=== PATIENT | male | born 1940 | race Caucasian/White ===

== ENCOUNTER → 2019-05-28 12:29 | Outpatient (CLI) | payer MEDICARE, OTHER | END | disposition home or self-care (01) | LOC: D.MRI 12:29 | PROVIDERS: ATTEND Family Medicine | DX: R26.89 Other abnormalities of gait and mobility (principal) ==

== ENCOUNTER 2019-09-16 18:19 | Inpatient (IN) | payer MEDICARE, OTHER ==
[~2019-09-16] VITALS: Ht 182.9 cm; Wt 75.8 kg
--- NOTE | ~2019-09-16 | OP ---
PATIENT NAME: RAMU DUMONT MEDICAL RECORD: [id number] :38 LOCATION:D.M2 D.2102 ADMISSION DATE:09/16/19 SURGEON: RAMU BREAUX MD DATE OF OPERATION: 09/20/2019 PREOPERATIVE DIAGNOSIS: Perirectal abscess. POSTOPERATIVE DIAGNOSES: Large perirectal abscess, left with rectal fistula. PROCEDURES: 1. Excisional debridement of perirectal abscess. The debrided margins were 2.0 x 1.9 cm, included skin and subcutaneous tissue as well as a portion of the abscess cavity. 2. Rectal fistulotomy. SURGEON: Ramu Breaux MD STAFF AIR DEFENSE OFFICER: None. BLOOD LOSS: 100 cc. ANESTHESIA: General. COMPLICATIONS: None. The risks, possible complications, and alternatives to the procedure were explained to the patient. He elects to proceed. Discussion specifically included, but was not limited to, bleeding requiring emergency reoperation, infection, postoperative fecal incontinence, postoperative anal stenosis. OPERATIVE COURSE: The patient's CT scan had been reviewed by me. The radiologist's interpretation was reviewed as well. The patient was conveyed to the operating room on 09/20/2019. General anesthesia was induced by anesthesia staff. The patient was placed in the lithotomy position. The buttocks were taped laterally. The anus and perianal tissues and peritoneum were sterilely prepped and draped. U-shaped anal retractors were placed up in through the anus. I punctured the abscess cavity. I then injected a combination of methylene blue and hydrogen peroxide. I could see the bubbling out at about 5 o' clock up in the rectum. This was above the level of the anus. I excised a portion of the skin and subcutaneous tissue abscess wall. This was done sharply. The dimensions are listed above. Through this defect, a lot of purulent material drained out. Cultures were obtained. Through this defect, I advanced a fistula probe. I was able to easily get it to advance out through the fistulous opening in the rectum. Over this fistula probe, I incised with electrocautery. The fistula was opened widely. I then performed some blunt dissection within the abscess cavity. Additional purulence was identified. I then irrigated with hydrogen peroxide. I marsupialized the fistulotomy with running locking 3-0 Vicryl Rapide suture. I then took some measurements. I then packed the wound with Kerlix that had some knots in it and that was soaked in hydrogen peroxide. OPERATIVE REPORT [id number] RAMU DUMONT sterile dressing was applied. The patient was then extubated and conveyed to post-anesthesia care unit where he was in stable condition. The opening to the fistula and the rectum was 4 cm from the anal verge. This is a pretty high fistula and would be a rectal fistula than an anal fistula. TRANSINT:[id number] Voice Confirmation ID: [id number] DOCUMENT ID: [id number] RAMU BREAUX MD CC: NIKKI LIRA [id number] DICTATION DATE: 09/21/19 1737 SALES AGENT MARINE INSURANCE: 09/22/19 0218 ADM IN [facility] [address] [id number]
[2019-09-16 19:15] LABS: APTT 30.3 SECONDS (22.8-39.4); BASOPHILS 0.1 % (0-2); EOSINOPHILS 0.2 % (0-7); HEMATOCRIT 27.3 % (42.0-54.0); HEMOGLOBIN 8.6 g/dL (13.5-17.5); IMMATURE GRANULOCYTES 0.2 % (0-5); INR 1.1 (0.85-1.17); MCH 25.5 pg (26.0-34.0); MCHC 31.5 g/dL (31.0-37.0); MEAN PLATELET VOLUME 7.9 fL (7.4-10.4); MONOCYTES 10.9 % (2-11); NEUTROPHILS 83.6 % (40-80); PLATELET COUNT 282 10x3/uL (130-400); PROTIME 14.2 SECONDS (11.6-15.0); RBC 3.37 10x6/uL (4.20-6.10); RDW 14.3 % (11.5-14.5); WBC 17.7 10x3/uL (4.8-10.8)
[2019-09-16 19:21] LABS: CALC OSMOLALITY 267 mosm/kg (275-300); CALCIUM 8.3 mg/dL (8.5-10.1); CARBON DIOXIDE 25.3 mmol/L (21.0-32.0); CHLORIDE - SERUM 99 mmol/L (98-107); CREATININE - SERUM 0.8 mg/dL (0.6-1.3); GLUCOSE 118 mg/dL (74-106); POTASSIUM - SERUM 4.3 mmol/L (3.5-5.1); SODIUM 132 mmol/L (136-145); UREA NITROGEN 17 mg/dL (7-18); eGFR NON AFRICAN AMERICAN > 90 mL/min (90-120)
[2019-09-16 19:44] LABS: ALBUMIN 2.5 g/dL (3.4-5.0); ALKALINE PHOSPHATASE 68 U/L (30-120); ALT (SGPT) 14 U/L (10-68); BILIRUBIN - TOTAL 0.32 mg/dL (0.2-1.3); C-REACTIVE PROTEIN 14.2 mg/dL (0.0-0.9); CKMB 0.4 U/L (0.0-3.6); CREATINE KINASE 35 UL (21-232); PROTEIN - SERUM 6.4 g/dL (6.4-8.2); TROPONIN-I 0.028 ng/mL (0.000-0.060)
[2019-09-16 19:48] VITALS: BP 125/61
--- NOTE | 2019-09-16 20:00 | NUR ---
URINE SPECIMEN AND ALL ORDERED SWABS TAKEN TO LAB AT THIS TIME.
[2019-09-16 20:31] LABS: BILIRUBIN NEGATIVE (NEGATIVE); GLUCOSE NEGATIVE (NEGATIVE); KETONE NEGATIVE (NEGATIVE); NITRITE NEGATIVE (NEGATIVE); SPECIFIC GRAVITY 1.015 (1.005-1.020); UROBILINOGEN NORMAL (NORMAL)
[2019-09-16 22:07] VITALS: BMI 21.0
[2019-09-17 07:11] LABS: BASOPHILS 0.3 % (0-2); EOSINOPHILS 1.3 % (0-7); HEMATOCRIT 25.7 % (42.0-54.0); IMMATURE GRANULOCYTES 0.3 % (0-5); LYMPHOCYTES 5.9 % (15-50); MCH 25.3 pg (26.0-34.0); MCHC 31.1 g/dL (31.0-37.0); MCV 81.3 fL (80.0-100.0); MONOCYTES 12.2 % (2-11); PLATELET COUNT 261 10x3/uL (130-400); RBC 3.16 10x6/uL (4.20-6.10); RDW 14.4 % (11.5-14.5); WBC 15.2 10x3/uL (4.8-10.8)
[2019-09-17 07:37] LABS: ALBUMIN 2.2 g/dL (3.4-5.0); ALKALINE PHOSPHATASE 61 U/L (30-120); ALT (SGPT) 13 U/L (10-68); BILIRUBIN - TOTAL 0.29 mg/dL (0.2-1.3); CALC OSMOLALITY 275 mosm/kg (275-300); CHLORIDE - SERUM 105 mmol/L (98-107); CREATININE - SERUM 0.8 mg/dL (0.6-1.3); GLUCOSE 113 mg/dL (74-106); MAGNESIUM - SERUM 2.2 mg/dL (1.8-2.4); POTASSIUM - SERUM 3.9 mmol/L (3.5-5.1); PROTEIN - SERUM 5.8 g/dL (6.4-8.2); SODIUM 137 mmol/L (136-145); UREA NITROGEN 14 mg/dL (7-18); eGFR NON AFRICAN AMERICAN > 90 mL/min (90-120)
[2019-09-17 08:27] VITALS: BP 126/50
--- NOTE | 2019-09-17 08:30 | NUR ---
PT LAYING SUPINE IN BED. RR EVEN AND UNLABORED ON RA. PT STATES HE HAD A BOWEL MOVEMENT WITHOUT MAKING IT TO THE BATHROOM IN TIME. GOWN, WIPES, AND BRIEF RECIEVED PER REQUEST. PT DENIES NEEDING HELP CHANGING. AMBULATED WITH STEADY GAIT TO BATHROOM. DENIES FURTHER NEEDS OR PAIN AT THIS TIME. CALL LIGHT WITHIN REACH. BED IN LOWEST POSITION. WILL CONTINUE TO MONITOR.
--- NOTE | 2019-09-17 09:36 | NUR ---
I have reviewed this patient and I concur with the Shift Assessment completed by the Licensed Practical Nurse today this shift.
[2019-09-17 12:18] VITALS: BP 119/59
--- NOTE | 2019-09-17 18:55 | NUR ---
DAVID WITH INFECTION CONTROLL CALLED TO INFORM STAFF THAT PT IS COVID-19 NEGATIVE. PT WILL BE MOVED TO ROOM 210.
--- NOTE | 2019-09-17 19:30 | NUR ---
REPORT RECEIVED, WILL CONTINUE POC. PATIENT IS AAOX4, TRANSFERING FROM ROOM 2128 TO 2101. NO S/S OF DISTRESS OBSERVED, RR EVEN AND UNLABORED ON ROOM AIR. PATIENT DENIES NEEDS AT THIS TIME. CL IN REACH, BED LOCKED AND LOWERED. WILL CTM.
[2019-09-17 21:08] VITALS: BP 121/60
[2019-09-17 23:58] VITALS: BP 112/46
[2019-09-18 04:05] VITALS: BP 106/50
[2019-09-18 06:31] LABS: BASOPHILS 0.3 % (0-2); HEMATOCRIT 24.4 % (42.0-54.0); IMMATURE GRANULOCYTES 0.3 % (0-5); LYMPHOCYTES 8.5 % (15-50); MCHC 30.7 g/dL (31.0-37.0); MCV 81.3 fL (80.0-100.0); MEAN PLATELET VOLUME 7.7 fL (7.4-10.4); MONOCYTES 11.3 % (2-11); NEUTROPHILS 78.6 % (40-80); PLATELET COUNT 273 10x3/uL (130-400); RDW 14.6 % (11.5-14.5); WBC 14.2 10x3/uL (4.8-10.8)
[2019-09-18 06:44] LABS: HEMOGLOBIN 7.5 g/dL (13.5-17.5)
[2019-09-18 06:53] LABS: CALC OSMOLALITY 272 mosm/kg (275-300); CALCIUM 7.8 mg/dL (8.5-10.1); CARBON DIOXIDE 25.2 mmol/L (21.0-32.0); CHLORIDE - SERUM 106 mmol/L (98-107); CREATININE - SERUM 0.7 mg/dL (0.6-1.3); GLUCOSE 93 mg/dL (74-106); POTASSIUM - SERUM 3.9 mmol/L (3.5-5.1); SODIUM 137 mmol/L (136-145); THYROID STIMULATING HORMONE 1.27 uIU/mL (0.36-3.74); UREA NITROGEN 11 mg/dL (7-18); eGFR NON AFRICAN AMERICAN > 90 mL/min (90-120)
--- NOTE | 2019-09-18 07:10 | NUR ---
REPORT RECEIVED FROM INSTRUCTOR INDUSTRIAL DESIGN AND PATIENT CARE ASSUMED. PATIENT LAYING IN BED ON BACK AWAKE, ALERT AND ORIENTED X 4. PATIENT DENIES ANY NEEDS OR PAIN. WILL CONTINUE WITH PLAN OF CARE. SR UPX 2 BED IN LOW POSTION AND CALL LIGHT IN REACH.
[2019-09-18 08:11] VITALS: BP 83/33
[2019-09-18 10:39] LABS: % SATURATION 6 % (15-55); IRON 13 ug/dl (35-150); TOTAL IRON BIND CAPACITY 209 ug/dl (260-445); UNSAT IRON BIND CAPACITY 196 ug/dl (150-375)
--- NOTE | 2019-09-18 10:50 | NUR ---
PATIENT IS STABLE AND VSS. ASSESMENT COMPLETED. AT BS. WILL CONITNUE TO MONITOR. SR UP X 2 BED IN LOW POSITION AND CALL LIGHT IN REACH.
[2019-09-18 11:42] VITALS: BP 111/42
[2019-09-18 14:56] VITALS: BP 114/48
[2019-09-18 16:28] LABS: BASOPHILS 0.3 % (0-2); EOSINOPHILS 0.9 % (0-7); HEMATOCRIT 29.2 % (42.0-54.0); IMMATURE GRANULOCYTES 0.3 % (0-5); LYMPHOCYTES 8.9 % (15-50); MCH 25.3 pg (26.0-34.0); MCHC 31.2 g/dL (31.0-37.0); MCV 81.3 fL (80.0-100.0); MEAN PLATELET VOLUME 7.8 fL (7.4-10.4); MONOCYTES 10.5 % (2-11); NEUTROPHILS 79.1 % (40-80); PLATELET COUNT 241 10x3/uL (130-400); RBC 3.59 10x6/uL (4.20-6.10); RDW 14.6 % (11.5-14.5); WBC 15.5 10x3/uL (4.8-10.8)
[2019-09-18 16:42] LABS: HEMOGLOBIN 9.1 g/dL (13.5-17.5)
--- NOTE | 2019-09-18 19:00 | NUR ---
REPORT RECEIVED, WILL CONTINUE POC. PATIENT IS AAOX4, LYING ON LEFT SIDE. NO S/S OF DISTRESS OBSERVED, RR EVEN AND UNLABORED ON ROOM AIR. PATIENT DENIES NEEDS AT THIS TIME. CL IN REACH, BED LOCKED AND LOWERED. WILL CTM.
[2019-09-18 20:48] VITALS: BP 112/57
[2019-09-19 00:48] VITALS: BP 111/62
--- NOTE | 2019-09-19 03:38 | NUR ---
I have reviewed this patient and I concur with the Shift Assessment completed by the Licensed Practical Nurse today this shift.
[2019-09-19 05:34] LABS: BASOPHILS 0.3 % (0-2); EOSINOPHILS 1.1 % (0-7); HEMATOCRIT 28.2 % (42.0-54.0); HEMOGLOBIN 8.9 g/dL (13.5-17.5); IMMATURE GRANULOCYTES 0.3 % (0-5); LYMPHOCYTES 8.5 % (15-50); MCH 25.4 pg (26.0-34.0); MCHC 31.6 g/dL (31.0-37.0); MCV 80.6 fL (80.0-100.0); MEAN PLATELET VOLUME 7.9 fL (7.4-10.4); MONOCYTES 12.9 % (2-11); NEUTROPHILS 76.9 % (40-80); PLATELET COUNT 259 10x3/uL (130-400); RDW 14.5 % (11.5-14.5); WBC 14.8 10x3/uL (4.8-10.8)
[2019-09-19 05:45] LABS: CALC OSMOLALITY 270 mosm/kg (275-300); CARBON DIOXIDE 26.8 mmol/L (21.0-32.0); CHLORIDE - SERUM 105 mmol/L (98-107); CREATININE - SERUM 0.8 mg/dL (0.6-1.3); GLUCOSE 103 mg/dL (74-106); MAGNESIUM - SERUM 1.9 mg/dL (1.8-2.4); POTASSIUM - SERUM 3.8 mmol/L (3.5-5.1); SODIUM 136 mmol/L (136-145); UREA NITROGEN 11 mg/dL (7-18); eGFR NON AFRICAN AMERICAN > 90 mL/min (90-120)
[2019-09-19 06:00] VITALS: BP 123/58
--- NOTE | 2019-09-19 07:42 | NUR ---
PT NPO AND WANTING MENU AND STATES HIS TOILET SEAT IS BROKEN I STATED I WILL CALL DIETARY AND MAINTENANCE. PT VERBALIZED UNDERSTANDING. CALLED DIETARY AND THEY STATE THEY WILL BRING MENU. I ALSO CALLED MAINTENANCE ABOUT THE TOILET SEAT AND THEY STATED THEY WOULD COME IX IT. I VERBALIZED UNDERSTANDING.
[2019-09-19 08:02] LABS: BASOPHILS 0.3 % (0-2); HEMATOCRIT 29.1 % (42.0-54.0); HEMOGLOBIN 9.2 g/dL (13.5-17.5); IMMATURE GRANULOCYTES 0.5 % (0-5); LYMPHOCYTES 9.6 % (15-50); MCH 25.3 pg (26.0-34.0); MCHC 31.6 g/dL (31.0-37.0); MCV 80.2 fL (80.0-100.0); MEAN PLATELET VOLUME 7.8 fL (7.4-10.4); MONOCYTES 13.1 % (2-11); NEUTROPHILS 75.5 % (40-80); PLATELET COUNT 253 10x3/uL (130-400); RBC 3.63 10x6/uL (4.20-6.10); RDW 14.5 % (11.5-14.5); WBC 15.4 10x3/uL (4.8-10.8)
[2019-09-19 08:11] VITALS: BP 146/56
[2019-09-19 12:13] VITALS: BP 117/62
--- NOTE | 2019-09-19 12:38 | MORECARE ---
CASE MANAGEMENT DISCHARGE SUMMARY PATIENT: OMAR DUMONT UNIT: [id number] ADM DATE: 09/16/19 AGE: 79 : 38 SEX: M ROOM/BED: D.2102 AUTHOR: HARJIT,DOC PHYSICIAN: REFERRING PHYSICIAN: NIKKI LIRA DO DATE OF SERVICE: 09/19/19 Discharge Plan Patient Name: OMAR DUMONT [facility] [facility] 1940 Planned Disposition: Home Anticipated Discharge Date: Discharge Date: Expected LOS: Initial Reviewer: [email or web address] Initial Review Date: 09/19/2019 Generated: 09/19/19 1:37 pm Comments DCP- Discharge Planning Updated by [email or web address]: Ne Leavitt on 09/19/19 11:[address] Patient Name: OMAR DUMONT Admission Status: ER Accout number: [id number] Admission Date: 09-16-2019 : 1940 Admission Diagnosis:FEVER, UNSPECIFIED Attending: NIKKI LIRA Current LOS: 3 Anticipated DC Date: Planned Disposition: Home Primary Insurance: MEDICARE A & B Discharge Planning Comments: CM met with patient to complete initial dc planning assessment. CM educated patient on the CM role and verbal consent given by patient to complete assessment. Patient lives at home with spouse. He is independent with all ADL's and AIDL's. At discharge patient plans to return and feels this is a safe discharge. CM discussed availability of home health, rehab services, and medical equipment. Patient denied known discharge needs at this time. He declines home health. I informed him that Medicare will pay for home health if needed and to phone his PCP for an order if he ever feels the need for home health or becomes homebound, voiced understanding. CM will continue to follow and will assist as needed with dc plans/needs. Computer Sciences Professor: Ne Leavitt DCPIA - Discharge Planning Initial Assessment Updated by [id number]: Ne Leavitt on 09/19/19 12:31 pm * Is the patient Alert and Oriented? Yes * How many steps to enter\exit or inside your home? 2/flight * PCP Dr. Robles * Pharmacy [facility] for superintendent terminal meds from * Preadmission Environment Home with Family * ADLs Independent * Equipment Cane * List name and contact numbers for known caregivers / representatives who currently or will assist patient after discharge: Bharati Dumont - [phone] * Verbal permission to speak to the caregivers and representatives has been obtained from the patient. Yes * Community resources currently utilized None * Additional services required to return to the preadmission environment? No * Can the patient safely return to the preadmission environment? Yes * Has this patient been hospitalized within the prior 30 days at any hospital? No Patient Name: OMAR DUMONT Page [phone] at 1238 All edits/amendments must be made on the electronic document DICTATION DATE: 09/19/191236 CREDIT OPERATIONS SPECIALIST: FIDELINA 09/19/191236 RPT#: [id number] DC DATE: STATUS: ADM IN [facility] [address] [place] [address] END OF REPORT
--- NOTE | 2019-09-19 13:05 | NUR ---
I have reviewed this patient and I concur with the Shift Assessment completed by the Licensed Practical Nurse today this shift.
--- NOTE | 2019-09-19 14:30 | NUR ---
PT TAKEN FOR EGD VIA BED.
[2019-09-19 16:09] LABS: ANA REFLEX - DIRECT Negative (Negative)
[2019-09-19 16:12] LABS: BASOPHILS 0.3 % (0-2); EOSINOPHILS 0.6 % (0-7); HEMATOCRIT 28.8 % (42.0-54.0); HEMOGLOBIN 9.1 g/dL (13.5-17.5); IMMATURE GRANULOCYTES 0.4 % (0-5); LYMPHOCYTES 6.4 % (15-50); MCH 25.3 pg (26.0-34.0); MCHC 31.6 g/dL (31.0-37.0); MCV 80.2 fL (80.0-100.0); MEAN PLATELET VOLUME 7.9 fL (7.4-10.4); MONOCYTES 10.7 % (2-11); NEUTROPHILS 81.6 % (40-80); PLATELET COUNT 251 10x3/uL (130-400); RBC 3.59 10x6/uL (4.20-6.10); RDW 14.5 % (11.5-14.5); WBC 14.5 10x3/uL (4.8-10.8)
--- NOTE | 2019-09-19 18:00 | NUR ---
CONSENTS FOR SX TOMORROW SIGNED.
--- NOTE | 2019-09-19 19:00 | NUR ---
PT RESTING IN BED WITH EYES CLOSED. RESPIRATIONS EVEN AND UNLABORED. BED IS LOW AND CALL LIGHT IS WITHIN REACH.
[2019-09-19 20:00] VITALS: BP 151/64
[2019-09-20] VITALS: BP 105/54
[2019-09-20 04:00] VITALS: BP 106/55
[2019-09-20 05:36] LABS: CHLORIDE - SERUM 102 mmol/L (98-107); CREATININE - SERUM 0.8 mg/dL (0.6-1.3); GLUCOSE 92 mg/dL (74-106); SODIUM 134 mmol/L (136-145); eGFR NON AFRICAN AMERICAN > 90 mL/min (90-120)
[2019-09-20 05:37] LABS: CALC OSMOLALITY 265 mosm/kg (275-300); POTASSIUM - SERUM 3.1 mmol/L (3.5-5.1); UREA NITROGEN 8 mg/dL (7-18)
[2019-09-20 05:40] LABS: HEMATOCRIT 26.5 % (42.0-54.0); HEMOGLOBIN 8.4 g/dL (13.5-17.5); MCH 25.5 pg (26.0-34.0); MCHC 31.7 g/dL (31.0-37.0); MCV 80.5 fL (80.0-100.0); MEAN PLATELET VOLUME 8.2 fL (7.4-10.4); PLATELET COUNT 260 10x3/uL (130-400); RBC 3.29 10x6/uL (4.20-6.10); RDW 14.7 % (11.5-14.5); WBC 15.3 10x3/uL (4.8-10.8)
--- NOTE | 2019-09-20 06:21 | NUR ---
IV TO LEFT WRIST LEAKING. RESITED IV TO RIGHT HAND 20G X 1 ATTEMPT. PT TOLERATED WELL.
--- NOTE | 2019-09-20 08:05 | NUR ---
PT LAYING AWAKE IN BED UPON ENTERING. ALERT AND ORIENTED X4. DENIES ANY NEEDS. BED IN LOWEST POSITION, BED RAILS X2, CALL LIGHT WITHIN REACH. WILL CONTINUE TO MONITOR.
--- NOTE | 2019-09-20 08:25 | NUR ---
HUNG IV ABX, AND PROVIDED PT WITH MORE DEPENDS. DENIES ANY OTHER NEEDS. RESTING COMFORTABLY IN BED. WILL CONTINUE TO MONITOR. ASSESSMENT PERFORMED AT THIS TIME.
[2019-09-20 09:44] LABS: LYMPHOCYTES 10 % (15-50); MONOCYTES 8 % (2-11); NEUTROPHILS 80 % (40-80); PLATELET ESTIMATE NORMAL
[2019-09-20 10:36] VITALS: BP 112/56
--- NOTE | 2019-09-20 10:46 | NUR ---
HUNG IV ABX, HAVE POTASSIUM REPLACEMENT BAGS READY FOR WHEN ABX ARE DONE. RESTING IN BED, AT BEDSIDE. DENIES ANY NEEDS. WILL CONTINUE TO MONITOR.
--- NOTE | 2019-09-20 11:06 | NUR ---
PRE-OP'D PT FOR PROCEDURE.
--- NOTE | 2019-09-20 11:42 | NUR ---
PT OUT TO SURGERY.
[2019-09-20 13:12] VITALS: Ht 182.9 cm; Wt 75.8 kg
[2019-09-20 14:39] VITALS: BP 110/65
--- NOTE | 2019-09-20 14:44 | NUR ---
PT BACK FROM SURGERY. VITALS ASSESSED, VSS. PT IS ALERT AND ORIENTED X4, DENIES ANY NEEDS. SURGERY TEAM GETTING PT BACK TO ROOM. WILL CONTINUE TO MONITOR FREQUENTLY FOR POST OP VITALS.
[2019-09-20 15:32] LABS: BASOPHILS 0.3 % (0-2); EOSINOPHILS 0.9 % (0-7); HEMATOCRIT 26.6 % (42.0-54.0); HEMOGLOBIN 8.5 g/dL (13.5-17.5); IMMATURE GRANULOCYTES 0.5 % (0-5); LYMPHOCYTES 6.3 % (15-50); MCH 25.6 pg (26.0-34.0); MCV 80.1 fL (80.0-100.0); MEAN PLATELET VOLUME 7.6 fL (7.4-10.4); MONOCYTES 11.6 % (2-11); NEUTROPHILS 80.4 % (40-80); RBC 3.32 10x6/uL (4.20-6.10); RDW 14.7 % (11.5-14.5); WBC 15.1 10x3/uL (4.8-10.8)
--- NOTE | 2019-09-20 15:49 | NUR ---
HUNG IV ABX, RETIMED APPROPRIATELY. DENIES ANY NEEDS. DR. LEACH IN THE ROOM, GAVE VERBAL ORDER FOR CLEAR LIQUID DIET. WILL CONTINUE TO MONITOR.
[2019-09-20 15:57] LABS: PLATELET COUNT 193 10x3/uL (130-400)
--- NOTE | 2019-09-20 16:10 | NUR ---
I have reviewed this patient and I concur with the Shift Assessment completed by the Licensed Practical Nurse today this shift.
--- NOTE | 2019-09-20 17:21 | NUR ---
AAO X4, UPRIGHT IN BED EATING DINNER. IV IRON STARTED. FAMILY AT BEDSIDE. DENIES ANY NEEDS. WILL CONTINUE TO MONITOR.
--- NOTE | 2019-09-20 19:30 | NUR ---
PT IN BED, AAO X 3, RESP EVEN AND UNLABORED, NO DISTRESS NOTED, PT HAS NO C/O PAIN OR DISCOMFORT NOTED AT THIS TIME. CL IN REACH, SR UP X 2.
[2019-09-20 20:30] VITALS: BP 114/62
--- NOTE | 2019-09-20 22:48 | NUR ---
OUTER ABD PADS CHANGED TO DRSG DUE TO DRAINAGE AT THIS TIME.
[2019-09-21 00:26] VITALS: BP 122/56
--- NOTE | 2019-09-21 04:05 | NUR ---
I have reviewed this patient and I concur with the Shift Assessment completed by the Licensed Practical Nurse today this shift.
[2019-09-21 04:30] VITALS: BP 137/82
[2019-09-21 05:34] LABS: BASOPHILS 0.5 % (0-2); EOSINOPHILS 2.1 % (0-7); HEMATOCRIT 29.1 % (42.0-54.0); IMMATURE GRANULOCYTES 0.8 % (0-5); LYMPHOCYTES 10.3 % (15-50); MCH 25.1 pg (26.0-34.0); MCHC 30.9 g/dL (31.0-37.0); MCV 81.3 fL (80.0-100.0); MONOCYTES 10.5 % (2-11); NEUTROPHILS 75.8 % (40-80); RBC 3.58 10x6/uL (4.20-6.10); RDW 14.9 % (11.5-14.5)
[2019-09-21 05:41] LABS: PLATELET COUNT 310 10x3/uL (130-400)
[2019-09-21 05:48] LABS: CALC OSMOLALITY 265 mosm/kg (275-300); CALCIUM 8.3 mg/dL (8.5-10.1); CARBON DIOXIDE 25.7 mmol/L (21.0-32.0); CHLORIDE - SERUM 101 mmol/L (98-107); CREATININE - SERUM 0.7 mg/dL (0.6-1.3); GLUCOSE 93 mg/dL (74-106); SODIUM 134 mmol/L (136-145); UREA NITROGEN 7 mg/dL (7-18); eGFR NON AFRICAN AMERICAN > 90 mL/min (90-120)
[2019-09-21 05:49] LABS: POTASSIUM - SERUM 3.6 mmol/L (3.5-5.1)
--- NOTE | 2019-09-21 07:58 | NUR ---
PT AWAKE AND ORIENTED, LYING IN BED. ASSISTED WITH URINAL, REQUESTS BEW PULLUPS. DRESSING C/D/I. CL INR EACH, SRX2, NO COMPLAINTS OR CONCERNS AT THIS TIME. NO FAMILY AT BEDSIDE.
[2019-09-21 10:06] VITALS: BP 123/59
--- NOTE | 2019-09-21 12:51 | NUR ---
PT AWAKE AND OIRENTED, REPLACED WOUND DRESSING THIS AM. PT IS CLEAN AND DRY. PHYSICAL THERAPY TOO WALK HIM LATER. IF PT PAIN
[2019-09-21 13:12] VITALS: BP 111/54
[2019-09-21 17:26] VITALS: BP 108/66
--- NOTE | 2019-09-21 19:13 | NUR ---
RECIEVED UP IN BED WITH EYES OPEN AND TV ON. ALERT AND ORIENTED X4. UP AD JAS TO B/R. TELEMETRY IN PLACE. NO IV AT THIS TIME. REPORTED BY OFFGOING THAT HE WOULD PROBABLY GO HOME TOMORROW. DENIES ANY NEEDS AT THIS TIME.
[2019-09-21 20:30] VITALS: BP 119/58
[2019-09-22 04:30] VITALS: BP 129/62
[2019-09-22 06:02] LABS: BASOPHILS 0.5 % (0-2); EOSINOPHILS 3.6 % (0-7); HEMATOCRIT 30.5 % (42.0-54.0); HEMOGLOBIN 9.5 g/dL (13.5-17.5); IMMATURE GRANULOCYTES 0.6 % (0-5); LYMPHOCYTES 10.4 % (15-50); MCH 25.4 pg (26.0-34.0); MCHC 31.1 g/dL (31.0-37.0); MCV 81.6 fL (80.0-100.0); MEAN PLATELET VOLUME 8.2 fL (7.4-10.4); MONOCYTES 13.6 % (2-11); NEUTROPHILS 71.3 % (40-80); PLATELET COUNT 337 10x3/uL (130-400); RBC 3.74 10x6/uL (4.20-6.10); RDW 14.9 % (11.5-14.5); WBC 10.1 10x3/uL (4.8-10.8)
[2019-09-22 06:27] LABS: CALC OSMOLALITY 269 mosm/kg (275-300); CALCIUM 8.4 mg/dL (8.5-10.1); CARBON DIOXIDE 25.6 mmol/L (21.0-32.0); CHLORIDE - SERUM 102 mmol/L (98-107); CREATININE - SERUM 0.7 mg/dL (0.6-1.3); GLUCOSE 94 mg/dL (74-106); POTASSIUM - SERUM 3.3 mmol/L (3.5-5.1); SODIUM 136 mmol/L (136-145); UREA NITROGEN 7 mg/dL (7-18); eGFR NON AFRICAN AMERICAN > 90 mL/min (90-120)
--- NOTE | 2019-09-22 07:22 | NUR ---
PT RESTING COMFORTABLY, NOT AT BEDSIDE AT THIS TIME. BREATHS EVEN REGULAR AND UNLABORED. NO SIGNS OR SYMTPOMS OF ACUTE DISTRESS NOTED AT THIS TIME. CL IN REACH, SRX2.
[2019-09-22 10:01] VITALS: BP 128/67
--- NOTE | 2019-09-22 10:14 | NUR ---
PT AWAKE AND ORIENTED, TOOK WALK WITH PT. STATES PAIN IS ONLY A 2 OR 3 OUT OF 10. VERY HOPEFUL AND ANXIOUS TO GO HOME TODAY. NO COMPLAINTS OR CONCERNS AT THIS TIME. CL IN REACH, SRX2. AT BEDSIDE.
--- NOTE | 2019-09-22 11:34 | NUR ---
I have reviewed this patient and I concur with the Shift Assessment completed by the Licensed Practical Nurse today this shift.
[2019-09-22] MEDS ORDERED: FLAGYL500 MG PO (12:20)
[2019-09-22] MEDS ORDERED: CIPRO500 MG PO (12:20)
[2019-09-22] MEDS ORDERED: HYDROCODON-ACE1 EAC7 PO (12:47)
[2019-09-22] MEDS ORDERED: COLACE100 MG PO (12:47)
--- NOTE | 2019-09-22 14:02 | NUR ---
PT ESCORTED OUT VIA WHEELCHAIR TO POV DRIVING
--- NOTE | 2019-09-22 20:10 | MORECARE ---
CASE MANAGEMENT DISCHARGE SUMMARY PATIENT: OMAR DUMONT UNIT: [id number] ADM DATE: 09/16/19 AGE: 79 : 38 SEX: M ROOM/BED: D.2102 AUTHOR: HARJIT,DOC PHYSICIAN: REFERRING PHYSICIAN: NIKKI LIRA DO DATE OF SERVICE: 09/22/19 Discharge Plan Patient Name: OMAR DUMONT Facility: [facility]:[place] : 1940 Planned Disposition: Home Anticipated Discharge Date: Discharge Date: 09/22/2019 Expected LOS: Initial Reviewer: [email or web address] Initial Review Date: 09/19/2019 Generated: 09/22/19 9:10 pm Comments DCP- Discharge Planning Updated by [email or web address]: Ne Leavitt on 09/19/19 11:[address] Patient Name: OMAR DUMONT Admission Status: ER Accout number: [id number] Admission Date: 09-16-2019 : 1940 Admission Diagnosis:FEVER, UNSPECIFIED Attending: NIKKI LIRA Current LOS: 3 Anticipated DC Date: Planned Disposition: Home Primary Insurance: MEDICARE A & B Discharge Planning Comments: CM met with patient to complete initial dc planning assessment. CM educated patient on the CM role and verbal consent given by patient to complete assessment. Patient lives at home with spouse. He is independent with all ADL's and AIDL's. At discharge patient plans to return and feels this is a safe discharge. CM discussed availability of home health, rehab services, and medical equipment. Patient denied known discharge needs at this time. He declines home health. I informed him that Medicare will pay for home health if needed and to phone his PCP for an order if he ever feels the need for home health or becomes homebound, voiced understanding. CM will continue to follow and will assist as needed with dc plans/needs. Pet Sitter: Ne Leavitt DCPIA - Discharge Planning Initial Assessment Updated by [id number]: Ne Leavitt on 09/19/19 12:31 pm * Is the patient Alert and Oriented? Yes * How many steps to enter\exit or inside your home? 2/flight * PCP Dr. Robles * Pharmacy [facility] for termite treater helper meds from * Preadmission Environment Home with Family * ADLs Independent * Equipment Cane * List name and contact numbers for known caregivers / representatives who currently or will assist patient after discharge: Bharati Dumont - [phone] * Verbal permission to speak to the caregivers and representatives has been obtained from the patient. Yes * Community resources currently utilized None * Additional services required to return to the preadmission environment? No * Can the patient safely return to the preadmission environment? Yes * Has this patient been hospitalized within the prior 30 days at any hospital? No Coverage Notice Reviewer: [id number] Domenic Ruiz Notice Issued Date-Time: 09/22/2019 12:33 Notice Type: IM Discharge Notice Notice Delivered To: Patient Relationship to Patient: Self Front Man Name: Delivery Method: HAND - Hand Delivered Elvira Days: Prior Verbal Notification: Recipient Understood Notice: Yes Recipient Signature: Yes Med Rec Note Co-signed by Attending: Coverage Notice Comment: Last DP export: 09/19/19 11:38 a Patient Name: OMAR DUMONT Page [id number] at 2009 All edits/amendments must be made on the electronic document DICTATION DATE: 09/22/192009 CERTIFIED MEDICAL ASST: FIDELINA 09/22/192009 RPT#: [id number] DC DATE:09/22/19 STATUS: DIS IN [facility] [address] [place] [address] END OF REPORT
== END 2019-09-22 14:04 | disposition home or self-care (01) | DRG 333 ==
LOC: D.ER 18:19 → D.MS 20:37 → D.M2 20:37
PROVIDERS: Family Medicine; Internal Medicine Gastroenterology; Internal Medicine Pulmonary Disease; Surgery; ADMIT Family Medicine; ATTEND Family Medicine
PROC: 0DB78ZX Excision of Stomach, Pylorus, Via Natural or Artificial Opening Endoscopic, Diagnostic (ICD-10-PCS; 2019-09-19)
PROC: 0JBB0ZZ Excision of Perineum Subcutaneous Tissue and Fascia, Open Approach (ICD-10-PCS; 2019-09-20)
PROC: 0DBP0ZZ Excision of Rectum, Open Approach (ICD-10-PCS; principal; 2019-09-20 10:30)
DX: K61.1 Rectal abscess (principal); E87.1 Hypo-osmolality and hyponatremia; D64.9 Anemia, unspecified; R53.83 Other fatigue; E88.09 Other disorders of plasma-protein metabolism, not elsewhere classified; R05 Cough